=== PATIENT | male | born 1990 | race Caucasian/White ===

== ENCOUNTER 2016-11-12 16:43 | Emergency (ER) | payer OTHER ==
[2016-11-12 16:45] VITALS: BP 136/64; PULSE 65; RESP 14; TEMP 99; O2SAT 99
--- NOTE | 2016-11-12 17:18 | PD ---
Physical Exam Time Seen by Provider: 17:17 Narrative 26yo M c/o laceration to R upper leg from a knife today while at work cutting a pipe. Patient seen in triage. VS reviewed. Patient awaiting bed placement. Data Data Last Documented VS Vital Signs Date Time Temp Pulse Resp B/P Pulse Ox O2 Delivery O2 Flow Rate FiO2 11/12/16 16:45 99.0 65 14 136/64 99 MDM Supervised Visit with CARLIE: Lala Cade Nov 12, 2016 17:18
--- NOTE | 2016-11-12 21:01 | PD ---
HPI Chief Complaint: Laceration/Skin Injury Time Seen by Provider: 20:58 Travel History International Travel<30 days: No Contact w/Intl Traveler<30days: No Traveled to known affect area: No History of Present Illness HPI 26-year-old male presents emergency Department with a laceration to his right lateral thigh from a knife. He states that he was cutting a piece of plastic pipe with a razor knife at work today. The knife accidentally slipped cutting into his thigh. He denies any numbness or tingling. Pain is moderate. No alleviating factors. Exacerbated by walking. PFSH Past Medical History Medical History: Denies Significant Hx Tetanus Vaccination: > 5 Years Past Surgical History Surgical History: No Previous Surgery Social History Alcohol Use: No Tobacco Use: No Allergies-Medications (Allergen,Severity, Reaction): Coded Allergies: No Known Allergies (Unverified , 11/12/16) Review of Systems Except as stated in HPI: all other systems reviewed are Neg Physical Exam Narrative GENERAL: This is a well-nourished, well-developed patient, in no apparent distress. SKIN: No rashes, ecchymoses or lesions. Warm and dry. HEAD: Atraumatic. Normocephalic. EYES: PERRL, EOMI, no discharge or injection. No scleral icterus. EARS: Clear NOSE: Nasal turbinates appear normal. THROAT: Mucosa pink and moist. Airway patent. NECK: Trachea midline. supple, moves head freely. LUNGS: Clear to auscultation. CV: Regular in rhythm. ABDOMEN: Soft nontender. EXT: No clubbing cyanosis or edema. Patient has a 2 cm laceration to the right anterior thigh. The laceration goes into the subcutaneous tissues. There is a small hematoma. Mildly tender. Neurovascular intact. No deep structure injury. Data Data Last Documented VS Vital Signs Date Time Temp Pulse Resp B/P Pulse Ox O2 Delivery O2 Flow Rate FiO2 11/12/16 16:45 99.0 65 14 136/64 99 MDM Medical Decision Making Medical Screen Exam Complete: Yes Emergency Medical Condition: Yes Medical Record Reviewed: Yes Differential Diagnosis MDM: High Differential diagnoses: Fracture, sprain, strain, dislocation, contusion, neurovascular injury Narrative Course Patient lacerations closed sutures. Tetanus in position updated. Procedures Procedure Narrative LACERATION LOCATION: Right anterior midthigh LENGTH: 2 cm NUMBER OF STITCHES/SONJA: 3 REPAIR: The area of the laceration was prepped with Betadine and sterilely draped. The laceration was infiltrated with 1% lidocaine. The wound was copiously irrigated and explored without evidence of foreign body, tendon injury or neurovascular injury. The wound was closed using 3-0 proline. This was a simple single layer repair. A sterile dressing was applied. The patient was advised to keep the dressing clean and dry. Patient tolerated the procedure well. Diagnosis Primary Impression: Laceration of right thigh Qualified Code: S71.111A - Laceration of right thigh, initial encounter Patient Instructions: General Instructions Additional Instructions: Rest. Elevation. Tylenol and Advil for pain. Daily wound care with soap, water, Neosporin. Sutures out in 10 days. Return to the ER if any problems. Med/Other Pt SpecificInfo: Wound Care Disposition: DISCHARGE HOME Condition: Stable Axel Gutierrez Nov 12, 2016 21:01
[2016-11-12] MEDS ORDERED: TETANUS/DIPHTHERIA TOXOID ADULT 0.5 ML VIAL IM ONE (21:15)
== END 2016-11-12 21:31 | disposition home or self-care (01) ==
LOC: NEPK 16:43
DX: S71.111A Laceration without foreign body, right thigh, initial encounter (principal); W26.0XXA Contact with knife, initial encounter; Y99.0 Civilian activity done for income or pay; Z23 Encounter for immunization
CPT/HCPCS: 12001; 90471; 90714